=== PATIENT | male | born 1950 | race Caucasian/White ===

== ENCOUNTER 2016-09-01 09:30 | Day surgery (SDC) | payer BC, MEDICARE ==
[~2016-09-01] VITALS: Ht 175.3 cm; Wt 89.4 kg
[~2016-09-01 09:30] MED LIST: ASPIRIN 81MG TA81 MG PO; ATENOLOL25 MG PO; CHEWABLE ASPIRI81 MG PO; FLOMAX0.4 MG PO; LISINOPRIL 20MG20 MG PO
--- NOTE | 2016-09-01 11:20 | Operative Note ---
Upper GI Endoscopy Procedure date: 09/01/16 Date of : 48 Procedure:Upper GI Endoscopy Esophagogastroduodenoscopy with cold biopsies Indications: Mr. Baker is a 65-year-old gentleman who does recently had coffee-ground emesis and melanotic stools. This occurred just over a week ago. He had black stools for 6 days. This originated with some lightheadedness, nausea and vomiting. The patient did have blood work that was initially hemoglobin 9.4 and hematocrit 30.2. Repeat blood work showed hemoglobin 9.9 and hematocrit 31.1. The patient was given Dexilant. He had been taking Aleve one or 2 tablets daily on a regular basis since January 2016. He was also taking baby aspirin. He reports no abdominal pain, heartburn or reflux. He has never had a colonoscopy. He does referee high school basketball. Performing Provider: Byron Disla MD Referring Provider: Rodo Adhikari M.D. Sedation: MAC sedation Procedure: Prior to the procedure, a history and physical exam was performed, and patients medications and allergies were reviewed. The risks and benefits of the procedure and the sedation options and risks were discussed with the patient. All questions were answered and informed consent was obtained. The patient was brought to the procedure room. Patient identification and proposed procedure were verified by the physician and the nurse. The patient was placed in a left lateral decubitus position and the scope was passed under direct vision. Throughout the procedure, the patient's blood pressure, pulse, and oxygen saturations were monitored continuously. The endoscope was introduced through the mouth, and advanced to the second part of duodenum. The upper GI endoscopy was accomplished without difficulty. The patient tolerated the procedure well. Findings: The scope was passed directly into the upper esophagus and advanced to the third portion of the duodenum. The post bulbar duodenum and duodenal bulb were normal with normal mucosa and conniventes. Cold biopsies were taken 4 from the duodenum to rule out celiac disease. The scope was withdrawn through a normal duodenal bulb and pylorus into the stomach. There was evidence of nonsteroidal anti-inflammatory drug gastropathy in the antrum with superficial erosion and a couple of very shallow healing superficial gastric ulceration in the antrum. The remainder of the antrum, body and fundus of the stomach were grossly normal. Upon retroflexion there was no hiatal hernia. 2 biopsies were taken in the antrum and along the lesser curvature for histology and/or CLOtest. The scope was then withdrawn into the esophagus. There was no evidence of reflux esophagitis or Ayoub's esophagus. The remainder of the esophageal mucosa was normal. Immediate complications: None EBL (ml): 0 Impression: 1. Nonsteroidal anti-inflammatory drug associated superficial gastric ulceration /erosion consistent with nonsteroidal anti-inflammatory drug gastropathy of antrum Recommendations: I am going to have the patient continue lower dose PPI plus misoprostol twice a day. I will also recommend iron supplementation. I would encourage colonoscopy based upon his anemia despite the fact that this is most likely nonsteroidal anti-inflammatory drug induced. This is primarily since he has never had a colonoscopy. at 1122
[2016-09-01 12:49] VITALS: BP 150/96
== END 2016-09-01 12:25 | disposition home or self-care (01) ==
LOC: SDC 09:30
PROVIDERS: Internal Medicine Gastroenterology
PROC: 0DB68ZX Excision of Stomach, Via Natural or Artificial Opening Endoscopic, Diagnostic (ICD-10-PCS; 2016-09-01)
PROC: 0DB98ZX Excision of Duodenum, Via Natural or Artificial Opening Endoscopic, Diagnostic (ICD-10-PCS; principal; 2016-09-01 10:30)
DX: K92.0 Hematemesis (principal); K92.1 Melena; K29.70 Gastritis, unspecified, without bleeding; T39.315A Adverse effect of propionic acid derivatives, initial encounter

== ENCOUNTER → 2016-12-30 | Outpatient (CLI) | payer BC, MEDICARE | LOC: LAB 15:28 | DX: B96.81 Helicobacter pylori [H. pylori] as the cause of diseases classified elsewhere (principal) ==

== ENCOUNTER 2017-02-09 13:05 | Day surgery (SDC) | payer BC, MEDICARE ==
[~2017-02-09] VITALS: Ht 175.3 cm; Wt 88.5 kg
--- NOTE | 2017-02-09 15:15 | Operative Note ---
Colonoscopy ([place]) Procedure date: 02/09/17 Date of : [birth year] Procedure:Colonoscopy Colonoscopy with cold snare polypectomy Indications: Mr. Baker is a 66-year-old gentleman with a history of recent melanotic stools and upper gastrointestinal bleeding in August 2016 and he was found to have gastric ulceration and gastropathy which was secondary to H. pylori and nonsteroidal anti-inflammatory drugs. He was placed on H. pylori therapy and then continued omeprazole and misoprostol for more than 4 months. The patient has had no further gastrointestinal bleeding and no further melena. He is here for initial screening colonoscopy. He reports no abdominal pain, weight loss, change in his bowel habits or rectal bleeding. He reports no family history of colon cancer. Performing Provider: Byron Disla MD Referrring Provider: Rodo Adhikari M.D. Sedation: MAC sedation Procedure: Prior to the procedure, a history and physical exam was performed, and patient medications and allergies were reviewed. The risks and benefits of the procedure and the sedation options and risks were discussed with the patient. All questions were answered and informed consent was obtained. Patient identification and proposed procedure were verified by the physician and the nurse. The patient was placed in a left lateral decubitus position. Throughout the procedure, the patient's blood pressure, pulse, and oxygen saturations were monitored continuously. Findings: On digital rectal examination there was normal rectal tone. There were no external hemorrhoids. The prostate was 2+, smooth, soft, symmetric without nodules. The colonoscope was introduced through the anal canal to the rectum and advanced to the cecum. The ileocecal valve and appendiceal orifice were identified. The scope was advanced a short distance into the ileum which appeared grossly normal. The scope was then withdrawn into the colon. There were 4 colon polyps identified in the ascending 2, descending 1 and sigmoid 1. These ranged in size from 5 date millimeter and were all removed via cold snare polypectomy. There were scattered diverticuli throughout the colon but more predominantly in the descending and sigmoid colon (LEFT colon). The rectum itself was normal. Upon retroflexion within the rectum there were grade 1 internal hemorrhoids. Impressions: 1. Colonic polyps 4 2. Pandiverticulosis 3. Grade 1 internal hemorrhoids Recommendations: I will follow up the polyp pathology and recommend repeat colonoscopy again in 3 -5 years based upon the polyp histology. I would encourage fiber supplementation on a long-term daily maintenance basis. Complications: None EBL (ml): 0 at 2506
[2017-02-09 16:08] VITALS: BP 151/87
== END 2017-02-09 15:45 | disposition home or self-care (01) ==
LOC: SDC 13:05
PROVIDERS: Internal Medicine Gastroenterology
PROC: 0DBN8ZX Excision of Sigmoid Colon, Via Natural or Artificial Opening Endoscopic, Diagnostic (ICD-10-PCS; 2017-02-09)
PROC: 0DBM8ZX Excision of Descending Colon, Via Natural or Artificial Opening Endoscopic, Diagnostic (ICD-10-PCS; 2017-02-09)
PROC: 0DBK8ZX Excision of Ascending Colon, Via Natural or Artificial Opening Endoscopic, Diagnostic (ICD-10-PCS; principal; 2017-02-09 14:00)
DX: Z12.11 Encounter for screening for malignant neoplasm of colon (principal); D12.2 Benign neoplasm of ascending colon; D12.4 Benign neoplasm of descending colon; D12.5 Benign neoplasm of sigmoid colon; K57.90 Diverticulosis of intestine, part unspecified, without perforation or abscess without bleeding; K64.0 First degree hemorrhoids